=== PATIENT | female | born 1990 | race Caucasian/White ===

== ENCOUNTER 2019-12-12 07:41 | Outpatient (CLI) | payer OTHER ==
[2019-12-12] MEDS ORDERED: [UNRECOGNIZED DRUG - OTHER] PO (08:27)
[2019-12-12] MEDS ORDERED: ASCO-184 PO (08:27)
[2019-12-12] MEDS ORDERED: MULT-516 PO (08:27)
[2019-12-12] MEDS ORDERED: D MANNOSE PO (08:27)
[2019-12-12] MEDS ORDERED: CRAN500T2 PO (08:27)
[2019-12-12] MEDS ORDERED: OMEG1CAP6 PO (08:27)
[2019-12-12] MEDS ORDERED: LACT1CAP63 PO (08:27)
== END 2019-12-12 23:59 | disposition home or self-care (01) ==
LOC: STAR 07:41
PROVIDERS: ATTEND Orthopaedic Surgery
DX: Z02.9 Encounter for administrative examinations, unspecified (principal)

== ENCOUNTER 2019-12-18 10:22 | Day surgery (SDC) | payer OTHER ==
[~2019-12-18] VITALS: Ht 157.5 cm; Wt 54.1 kg
[~2019-12-18 10:22] MED LIST: ASCO-184 PO; CRAN500T2 PO; D MANNOSE PO; LACT1CAP63 PO; MULT-516 PO; OMEG1CAP6 PO; [UNRECOGNIZED DRUG - OTHER] PO
[2019-12-18] MEDS ORDERED: LACTATED RINGERS 1,000 ML IV ONE (10:50)
[2019-12-18 11:03] VITALS: BP 120/82
[2019-12-18 11:35] LABS: HCG UR SG 1.022 (1.003-1.030)
[2019-12-18] MEDS ORDERED: BUPIVACAINE/PF-EPI 0.5% 1:200K ONE (13:18)
[2019-12-18] MEDS ORDERED: MIDAZOLAM 1 MG/ML, 2ML ONE ×2 (13:26→15:34)
[2019-12-18] MEDS ORDERED: FENTANYL PF 100 MCG/2ML ONE ×2 (13:26→15:26)
[2019-12-18] MEDS ORDERED: LIDOCAINE GEL 2%, 5ML ONE (13:28)
[2019-12-18] MEDS ORDERED: ONDANSETRON 2MG/ML, 2ML ONE (15:12)
[2019-12-18] MEDS ORDERED: PROPOFOL 10 MG/ML, 20ML ONE (15:12)
[2019-12-18] MEDS ORDERED: DEXAMETHASONE 4 MG/ML, 1ML ONE (15:12)
[2019-12-18] MEDS ORDERED: CEFAZOLIN 1,000 MG ONE (15:12)
[2019-12-18] MEDS ORDERED: KETOROLAC 30 MG/1 ML ONE (15:13)
[2019-12-18] MEDS: FENTANYL PF 100 MCG/2ML IV PRN ×2 (15:26→15:34)
[2019-12-18] MEDS ORDERED: ACETAMINOPHEN 650 MG/20.3 ML UDC ONE (15:26)
[2019-12-18] MEDS ORDERED: OXYcodone 5 MG/5 ML ORAL.SOL UDC ONE (15:27)
[2019-12-18] MEDS ORDERED: METOPROLOL 1 MG/ML, 5ML IV PRN (15:30)
[2019-12-18] MEDS ORDERED: ACETAMINOPHEN 650 MG/20.3 ML UDC PO PRN (15:30)
[2019-12-18] MEDS ORDERED: MEPERIDINE/PF 25MG/ML,1ML IVPush PRN (15:30)
[2019-12-18] MEDS ORDERED: hydrALAzine 20 MG/ML, 1ML IV PRN (15:30)
[2019-12-18] MEDS ORDERED: MIDAZOLAM 1 MG/ML, 2ML IV PRN (15:30)
[2019-12-18] MEDS ORDERED: ALBUTEROL/IPRATROPIUM 2.5MG/0.5MG, 3 ML NPPB PRN (15:30)
[2019-12-18] MEDS ORDERED: OXYcodone 5 MG/5 ML ORAL.SOL UDC PO PRN (15:30)
[2019-12-18] MEDS ORDERED: PROMETHAZINE 25 MG/ML, 1ML IV PRN (15:30)
[2019-12-18] MEDS ORDERED: HYDROmorphone 1 MG/ML, 1ML INJ IVPush PRN (15:30)
[2019-12-19] MEDS ORDERED: MULTIVITAMIN PO SCH (09:00)
[2019-12-19] MEDS ORDERED: ASCORBIC ACID PO SCH (09:00)
[2019-12-19] MEDS ORDERED: CRANBERRY EXTRACT 650 MG PO SCH (09:00)
[2019-12-19] MEDS ORDERED: [UNRECOGNIZED DRUG - REMARK] PO SCH (09:00)
[2019-12-19] MEDS ORDERED: MULTIVITAMIN 1 TABLET PO SCH (09:00)
[2019-12-19] MEDS ORDERED: [UNRECOGNIZED DRUG - OTHER] PO SCH (09:00)
[2019-12-19] MEDS ORDERED: D MANNOSE 1000 MG PO SCH (09:00)
[2019-12-19] MEDS ORDERED: [UNRECOGNIZED DRUG - OTHER] PO SCH (09:00)
[2019-12-19] MEDS ORDERED: OMEGA-3/FISH OIL CAPSULE PO SCH (09:00)
== END 2019-12-18 17:20 | disposition home or self-care (01) ==
LOC: OUT 10:22
PROVIDERS: ATTEND Orthopaedic Surgery
DX: M65.861 Other synovitis and tenosynovitis, right lower leg (principal); M67.51 Plica syndrome, right knee
CPT/HCPCS: 29875; 81025; J0690; J1100; J1885; J2250; J2405; J2704; J3010; J7120

== ENCOUNTER 2019-12-21 16:37 | Emergency (ER) | payer OTHER ==
[~2019-12-21] VITALS: Ht 157.5 cm; Wt 55.9 kg
[2019-12-21 16:50] VITALS: BP 109/75
[2019-12-21 17:58] LABS: BASOPHILS # (AUTO) 0.01 x10^3/uL (0-0.1); BASOPHILS % (AUTO) 0 % (0-1); EOSINOPHILS # (AUTO) 0.07 x10^3/uL (0-0.4); EOSINOPHILS % (AUTO) 1 % (1-7); LYMPHOCYTES # (AUTO) 1.37 x10^3/uL (1-3.4); LYMPHOCYTES % (AUTO) 12 % (22-44); MD NO; MEAN CORPUSCULAR HEMOGLOBIN 29.2 pg (27.0-34.8); MEAN CORPUSCULAR HGB CONC 33.7 g/dL (32.4-35.8); MEAN CORPUSCULAR VOLUME 86.7 fL (80-100); MEAN PLATELET VOLUME 7.2 fL (7.4-10.4); MONOCYTES # (AUTO) 0.47 x10^3/uL (0.2-0.8); MONOCYTES % (AUTO) 4 % (2-9); NEUTROPHILS # (AUTO) 9.75 x10^3/uL (1.8-6.8); NEUTROPHILS % (AUTO) 84 % (42-75); PLATELET COUNT 270 x10^3/uL (130-400); RED BLOOD COUNT 5.06 x10^6/uL (3.82-5.3); RED CELL DISTRIBUTION WIDTH 12.8 % (9.6-15.2)
[2019-12-21 18:15] LABS: ANION GAP 7 mmol/L (5-15); CALCIUM 8.8 mg/dL (8.5-10.1); CHLORIDE 105 mmol/L (98-107)
[2019-12-21 18:16] LABS: CREATININE 0.73 mg/dL (0.55-1.02)
== END 2019-12-21 19:27 | disposition home or self-care (01) ==
LOC: ED 17:37
DX: R55 Syncope and collapse (principal); R94.31 Abnormal electrocardiogram [ECG] [EKG]
CPT/HCPCS: 36415; 80048; 82040; 84703; 85025; 93005; 99284